=== PATIENT | male | born 1965 | race Two or more races ===

== ENCOUNTER 2019-11-02 19:59 | Emergency (ER) | payer OTHER, MEDICAID ==
[~2019-11-02] VITALS: Ht 177.8 cm; Wt 95.3 kg
[~2019-11-02 19:59] MED LIST: METF-370 PO; RISP1TAB33 PO
[2019-11-02 20:57] LABS: Basophils # (auto) 0.1 10 ^3/uL (0-0.2); Basophils % (auto) 0.5 % (0.0-2.0); Eosinophils # (auto) 0 10 ^3/uL (0-0.8); Eosinophils % (auto) 0.1 % (0.0-7.0); Hematocrit 43.7 % (41.0-53.0); Hemoglobin 14.2 g/dL (13.5-17.5); Lymphocytes # (auto) 1.4 10 ^3/uL (0.4-5.4); Mean Corpuscular Hemoglobin 28.2 pg (28.0-32.0); Mean Corpuscular Hgb Conc. 32.5 g/dL (32.0-36.0); Mean Corpuscular Volume 86.6 fL (80.0-100.0); Monocytes # (auto) 1.4 10 ^3/uL (0-1.3); Monocytes % (auto) 9.4 % (0.0-12.0); Neutrophils # (auto) 12.3 10 ^3/uL (1.6-8.6); Platelet Count (auto) 288 10^3/uL (140-450); Red Blood Cells 5.04 10^6/uL (4.5-5.90); Red Cell Distribution Width 13.8 % (11.8-14.3); White Blood Cell 15.2 10^3/uL (4.4-10.8)
[2019-11-02] MEDS ORDERED: cefTRIAXone 1GM/50ML D5W 50 ML IV ONE (21:15)
[2019-11-02 21:23] LABS: Albumin 2.8 g/dL (3.4-5.0); Calcium 9.4 mg/dL (8.5-10.1); Potassium 3.9 mmol/L (3.5-5.1)
[2019-11-02 21:25] LABS: BUN/Creatinine Ratio 35.7
[2019-11-02 21:28] LABS: Bilirubin, Total 0.7 mg/dL (0.2-1.0); Total Protein 7.7 g/dL (6.4-8.2)
[2019-11-02] MEDS ORDERED: IOHEXOL 300 MG/ML 100ML BOTTLE IJ ONE (23:13)
[2019-11-03] MEDS ORDERED: SODIUM CHLORIDE 0.9% 1,000 ML IV ONE (06:57)
[2019-11-03 08:30] VITALS: BP 146/86
== END 2019-11-03 08:46 | disposition short-term general hospital (02) ==
LOC: ER 19:59 → EDBD 19:59 → ER 11-03 08:46
DX: J98.8 Other specified respiratory disorders (principal)
CPT/HCPCS: 36415; 70491; 71046; 80053; 83605; 83735; 83880; 84443; 84484; 85025; 87040; 96361; 96365; 99285; J0696; J7030; Q9967